=== PATIENT | female | born 1945 | race Caucasian/White ===

== ENCOUNTER 2020-10-11 20:58 | Inpatient (IN) | payer OTHER ==
[~2020-10-11] VITALS: Ht 167.6 cm; Wt 53.6 kg
[~2020-10-11 20:58] MED LIST: ABILIFY5 M1 PO; ALEVE220 MG PO; ALL DAY ALLERGY10 M2 PO; BUSPIRONE HCL30 MG PO; FLUOXETINE HCL40 MG PO
[2020-10-11 22:02] LABS: BASOPHIL 0.3 % (0-2); EOSINOPHIL 0 % (0-7); HCT 43.2 % (37.0-47.0); HGB 14.5 g/dl (12.5-16.0); LYMPHOCYTE 4.9 % (15-48); MCH 31.4 pg (25.0-31.0); MCHC 33.6 g/dL (32.0-36.0); MCV 93.5 fL (78.0-100.0); MONOCYTE 10.5 % (0-12); MPV 9.9 fL (6.0-9.5); NEUTROPHIL 83.6 % (41-80); NRBC 0; PLT 315 K/uL (150-400); RBC 4.62 M/uL (4.20-5.40); WBC 20.4 K/uL (4.0-10.5)
[2020-10-11 22:13] LABS: PRO-BNP 278 pg/mL (<125)
[2020-10-11 22:19] LABS: ALBUMIN 3.1 g/dL (3.4-5.0); BILIRUBIN - TOTAL 0.9 mg/dL (0.2-1.0); CREATININE 0.5 mg/dL (0.51-0.95); GLOBULIN (CALCULATION) 4.8 g/dL; MAGNESIUM 1.7 mg/dL (1.8-2.4); POTASSIUM 3.6 mmol/L (3.5-5.1); TOTAL PROTEIN 7.9 g/dL (6.4-8.2)
[2020-10-11 22:54] LABS: LACTIC ACID 1.2 mmol/L (0.4-1.9)
[2020-10-12 03:37] LABS: BILIRUBIN 1+ mg/dL (NEGATIVE); BLOOD 1+ Ery/uL (NEGATIVE); CLARITY CLEAR (CLEAR); COLOR YELLOW (YELLOW); GLUCOSE (U) NORMAL (NORMAL); LEUKOCYTES NEGATIVE Leu/uL (NEGATIVE); NITRITE NEGATIVE (NEGATIVE); PROTEIN 1+ mg/dL (NEGATIVE); SPECIFIC GRAVITY >=1.030 (1.001-1.030)
[2020-10-12 03:47] LABS: BACTERIA TRACE; URINARY WBC RARE
[2020-10-12 03:48] LABS: MUCOUS TRACE
[2020-10-12 06:59] LABS: BASOPHIL 0.3 % (0-2); EOSINOPHIL 0 % (0-7); HCT 39.4 % (37.0-47.0); HGB 12.9 g/dl (12.5-16.0); LYMPHOCYTE 2.2 % (15-48); MCHC 32.7 g/dL (32.0-36.0); MCV 94.7 fL (78.0-100.0); MONOCYTE 3.7 % (0-12); MPV 10.1 fL (6.0-9.5); NRBC 0; PLT 298 K/uL (150-400); RBC 4.16 M/uL (4.20-5.40); WBC 17.2 K/uL (4.0-10.5)
[2020-10-12 07:23] LABS: BUN/CREAT RATIO (CALC) 22.2 RATIO; CREATININE 0.45 mg/dL (0.51-0.95); POTASSIUM 3.8 mmol/L (3.5-5.1)
[2020-10-13 07:03] LABS: BASOPHIL 0.2 % (0-2); EOSINOPHIL 0 % (0-7); HCT 38.5 % (37.0-47.0); HGB 12.7 g/dl (12.5-16.0); LYMPHOCYTE 7.1 % (15-48); MCH 31.2 pg (25.0-31.0); MCV 94.6 fL (78.0-100.0); MONOCYTE 6.7 % (0-12); MPV 10.1 fL (6.0-9.5); NEUTROPHIL 85.1 % (41-80); NRBC 0; PLT 359 K/uL (150-400); RBC 4.07 M/uL (4.20-5.40); RDW 13.8 % (11.5-14.0); WBC 17.8 K/uL (4.0-10.5)
[2020-10-13 07:15] LABS: ALBUMIN 2.5 g/dL (3.4-5.0); BILIRUBIN - TOTAL 0.3 mg/dL (0.2-1.0); BUN/CREAT RATIO (CALC) 28.1 RATIO; CREATININE 0.64 mg/dL (0.51-0.95); GLOBULIN (CALCULATION) 4.3 g/dL; POTASSIUM 4.1 mmol/L (3.5-5.1); TOTAL PROTEIN 6.8 g/dL (6.4-8.2)
[2020-10-14 05:49] LABS: BASOPHIL 0.2 % (0-2); EOSINOPHIL 0.2 % (0-7); HGB 11.5 g/dl (12.5-16.0); LYMPHOCYTE 12.4 % (15-48); MCH 30.7 pg (25.0-31.0); MCHC 32.9 g/dL (32.0-36.0); MCV 93.6 fL (78.0-100.0); MONOCYTE 9.8 % (0-12); MPV 9.2 fL (6.0-9.5); NEUTROPHIL 76.8 % (41-80); NRBC 0; PLT 369 K/uL (150-400); RBC 3.74 M/uL (4.20-5.40); RDW 13.6 % (11.5-14.0); WBC 17.2 K/uL (4.0-10.5)
[2020-10-14 06:09] LABS: ALBUMIN 2.3 g/dL (3.4-5.0); BILIRUBIN - TOTAL 0.3 mg/dL (0.2-1.0); BUN/CREAT RATIO (CALC) 22.4 RATIO; CREATININE 0.58 mg/dL (0.51-0.95); GLOBULIN (CALCULATION) 3.5 g/dL; POTASSIUM 3.2 mmol/L (3.5-5.1); TOTAL PROTEIN 5.8 g/dL (6.4-8.2)
[2020-10-15 07:08] LABS: BASOPHIL 0.3 % (0-2); EOSINOPHIL 0.7 % (0-7); HCT 34.5 % (37.0-47.0); HGB 11.3 g/dl (12.5-16.0); LYMPHOCYTE 25.9 % (15-48); MCH 31.1 pg (25.0-31.0); MCHC 32.8 g/dL (32.0-36.0); MONOCYTE 13.6 % (0-12); MPV 9.6 fL (6.0-9.5); NEUTROPHIL 58.3 % (41-80); NRBC 0; PLT 387 K/uL (150-400); RBC 3.63 M/uL (4.20-5.40); RDW 13.9 % (11.5-14.0)
[2020-10-15 07:16] LABS: WBC 13.9 K/uL (4.0-10.5)
[2020-10-15 07:47] LABS: ALBUMIN 2.2 g/dL (3.4-5.0); BILIRUBIN - TOTAL 0.3 mg/dL (0.2-1.0); BUN/CREAT RATIO (CALC) 21.2 RATIO; CREATININE 0.66 mg/dL (0.51-0.95); GLOBULIN (CALCULATION) 3.4 g/dL; POTASSIUM 3.5 mmol/L (3.5-5.1); TOTAL PROTEIN 5.6 g/dL (6.4-8.2)
[2020-10-15] MEDS ORDERED: LACTOBACILLUS1 EACH PO (11:43)
[2020-10-15] MEDS ORDERED: SPIRIVA 18MCG18 MCG INH (11:43)
[2020-10-15] MEDS ORDERED: DUONEB 2.5-0.5M1 AMP NEB (11:43)
[2020-10-15] MEDS ORDERED: HABITROL14 MG EXT (11:43)
[2020-10-15] MEDS ORDERED: PREDNISONE 20MG20 MG PO (11:43)
[2020-10-15] MEDS ORDERED: VIBRAMYCIN100 MG PO (11:43)
[2020-10-15] MEDS ORDERED: VENTOLIN HFA IN18 GM INH (11:43)
[2020-10-15] MEDS ORDERED: SYMBICORT 80-10.2 GM INH (11:43)
== END 2020-10-15 13:44 | disposition home or self-care (01) | DRG 871 ==
LOC: FER 20:58 → FMS 10-12 00:12
PROVIDERS: Emergency Medicine; Family Medicine; Nurse Practitioner; ADMIT Internal Medicine
DX: A41.9 Sepsis, unspecified organism (principal); J18.0 Bronchopneumonia, unspecified organism; J96.01 Acute respiratory failure with hypoxia; J44.1 Chronic obstructive pulmonary disease with (acute) exacerbation; J44.0 Chronic obstructive pulmonary disease with (acute) lower respiratory infection; Z20.822 Contact with and (suspected) exposure to COVID-19; F17.210 Nicotine dependence, cigarettes, uncomplicated; F31.9 Bipolar disorder, unspecified; F41.1 Generalized anxiety disorder; M19.90 Unspecified osteoarthritis, unspecified site; F43.10 Post-traumatic stress disorder, unspecified; Z80.9 Family history of malignant neoplasm, unspecified; Z90.89 Acquired absence of other organs; Z98.51 Tubal ligation status; Z98.890 Other specified postprocedural states
CPT/HCPCS: 36415; 36600; 71250; 80048; 80053; 81001; 82728; 82803; 83605; 83615; 83735; 83880; 84145; 84443; 84484; 85025; 86140; 87040; 87070; 87205; 93005; 94010; 94640; 94668; J1650; J2543; J2930; J3370; J7030; J7050; J7512; U0002